=== PATIENT | male | born 1965 | race Caucasian/White ===

== ENCOUNTER 2016-11-23 14:54 | Inpatient (IN) | payer OTHER ==
[~2016-11-23] VITALS: Ht 165.1 cm; Wt 69.9 kg
[2016-11-23] MEDS ORDERED: ONDANSETRON HCL 4MG/2ML VIAL IV STA (15:18)
[2016-11-23] MEDS ORDERED: SODIUM CHLORIDE 0.9% 1,000 ML IV ONE (15:18)
[2016-11-23] MEDS ORDERED: FAMOTIDINE 20MG/2ML VIAL IV STA (15:18)
[2016-11-23] MEDS ORDERED: LORAZEPAM 2MG/ML CPJ IV ONE (15:30)
[2016-11-23 15:37] LABS: HEMATOCRIT. 47.7 % (42.0-52.0); HEMOGLOBIN. 15.9 g/dL (14.0-18.0); LYMPHOCYTES % 30.7 % (20.0-50.0); MEAN CORPUSCULAR HEMOGLOBIN 29.5 pg (28.0-32.0); MEAN CORPUSCULAR HGB CONC 33.4 g/dL (31.0-37.0); MEAN CORPUSCULAR VOLUME 88.5 fL (80.0-94.0); MEAN PLATELET VOLUME 8.5 fl (7.4-10.4); MONOCYTES % 5.4 % (2.0-8.0); NEUTROPHILS % 61.9 % (40.0-76.0); PLATELET 384 x1000/uL (130-400); RED BLOOD CELL COUNT 5.39 mill/uL (4.7-6.1); RED CELL DISTRIBUTION WIDTH 14.4 % (11.6-14.6); WHITE BLOOD COUNT 9.2 x1000/uL (4.5-11.0)
[2016-11-23 15:41] LABS: PROTHROMBIN TIME 10.5 sec
[2016-11-23 15:47] LABS: ALANINE AMINOTRANSFERASE 50 IU/L (13-61); ANION GAP 16; CALCIUM 8.5 mg/dL (8.5-10.1); CARBON DIOXIDE 27 mEq/L (21-32); CHLORIDE 106 mEq/L (98-107); CREATINE KINASE 252 IU/L (39-308); INDEX HEMOLYSI 1 (1-3); INDEX ICTERIC 1 (1-4); INDEX LIPEMIC 1 (1-3); LIPASE 217 IU/L (73-393); MAGNESIUM 2.3 mg/dL (1.8-2.4); UREA NITROGEN BLOOD 11 mg/dL (7-21); eGFR > 60 mL/min (>60)
[2016-11-23 15:49] LABS: CREATINE KINASE MB FRACTION 1.5 ng/mL (0.5-3.6); TROPONIN I < 0.02 ng/mL (0.00-0.04)
[2016-11-23 15:51] LABS: ETHANOL BLOOD 333 mg/dL
[2016-11-23 16:09] LABS: CLARITY URINE CLEAR (CLEAR); COLOR URINE YELLOW (YELLOW); GLUCOSE URINE NEGATIVE (NEGATIVE); KETONES URINE NEGATIVE (NEGATIVE); LEUKOCYTE ESTERASE URINE NEGATIVE (NEGATIVE); NITRITE URINE NEGATIVE (NEGATIVE); OCCULT BLOOD URINE NEGATIVE (NEGATIVE); PH URINE 5.5 (4.5-8.0); PROTEIN URINE NEGATIVE (NEGATIVE); SPECIFIC GRAVITY URINE 1.009 (1.005-1.030); UROBILINOGEN URINE 0.2 E.U./dL (0.2-1.0)
[2016-11-23 16:20] LABS: *AMPHETAMINES SCREEN URINE NEGATIVE (NEGATIVE); *BARBITURATES SCREEN URINE NEGATIVE (NEGATIVE); *BENZODIAZEPINES SCREEN URINE NEGATIVE (NEGATIVE); *COCAINE SCREEN URINE NEGATIVE (NEGATIVE); CANNABINOID URINE SCREEN NEGATIVE (NEGATIVE); ECSTASY MDMA SCREEN URINE CONF.TEST INDICATED (NEGATIVE); METHADONE URINE SCREEN NEGATIVE (NEGATIVE); OPIATES URINE SCREEN PRESUMTIVE POSITIVE (NEGATIVE); PHENCYCLIDINE URINE SCREEN NEGATIVE (NEGATIVE)
[2016-11-23] MEDS ORDERED: LEVETIRACETAM 500MG TABLET PO ONE (18:30)
[2016-11-23] MEDS ORDERED: LEVETIRACETAM 500MG PREMIX 100 ML IV ONE (18:30)
[2016-11-23] MEDS ORDERED: DEXT 5%/0.45% NACL 1000ML 1,000 ML IV SCH (20:07)
[2016-11-23] MEDS ORDERED: ONDANSETRON HCL 4MG/2ML VIAL IV PRN (20:15)
[2016-11-23 21:07] LABS: AMMONIA < 10 uMol/L (<32); INDEX HEMOLYSI 1 (1-3)
[2016-11-23] MEDS ORDERED: MVI, ADULT NO.1 10 ML, FOLIC ACID 1 MG, THIAMINE HCL 100 MG in SODIUM CHLORIDE 0.9% 1,0... IV NR ×4 (22:00)
[2016-11-23] MEDS: LORAZEPAM 2MG/ML CPJ IV PRN (23:45)
[2016-11-24] VITALS (7 sets, daily range): BP systolic 110–147; BP diastolic 66–85
[2016-11-24] MEDS: DEXT 5%/0.45% NACL 1000ML 1,000 ML IV SCH ×2 (06:22→16:32)
[2016-11-24 07:03] LABS: ALANINE AMINOTRANSFERASE 37 IU/L (13-61); ALBUMIN 3.3 g/dL (3.4-5.0); ANION GAP 14; BILIRUBIN DIRECT < 0.1 mg/dL (0.0-0.2); CALCIUM 7.5 mg/dL (8.5-10.1); CARBON DIOXIDE 26 mEq/L (21-32); CHLORIDE 106 mEq/L (98-107); INDEX HEMOLYSI 1 (1-3); INDEX ICTERIC 1 (1-4); INDEX LIPEMIC 1 (1-3); MAGNESIUM 1.8 mg/dL (1.8-2.4); PHOSPHORUS 3.2 mg/dL (2.5-4.9); UREA NITROGEN BLOOD 16 mg/dL (7-21); eGFR > 60 mL/min (>60)
[2016-11-24 07:33] LABS: BASOPHILS % 0.8 % (0.0-2.0); EOSINOPHILS % 1.5 % (0.0-5.0); HEMATOCRIT. 41.4 % (42.0-52.0); LYMPHOCYTES % 21.8 % (20.0-50.0); MEAN CORPUSCULAR HEMOGLOBIN 30.1 pg (28.0-32.0); MEAN CORPUSCULAR HGB CONC 33.8 g/dL (31.0-37.0); MEAN CORPUSCULAR VOLUME 89.1 fL (80.0-94.0); MEAN PLATELET VOLUME 8.7 fl (7.4-10.4); MONOCYTES % 5.9 % (2.0-8.0); PLATELET 345 x1000/uL (130-400); RED BLOOD CELL COUNT 4.65 mill/uL (4.7-6.1); RED CELL DISTRIBUTION WIDTH 14.5 % (11.6-14.6); WHITE BLOOD COUNT 11.6 x1000/uL (4.5-11.0)
[2016-11-24] MEDS: PANTOPRAZOLE SODIUM 40 MG/VIAL IV SCH (09:17)
[2016-11-24] MEDS: LEVETIRACETAM 500MG TABLET PO SCH ×2 (09:24→20:51)
[2016-11-24] MEDS: LORAZEPAM 2MG/ML CPJ IV PRN ×3 (09:24→23:10)
[2016-11-24] MEDS ORDERED: LORAZEPAM 2MG/ML CPJ IV SCH (12:00)
[2016-11-24] MEDS ORDERED: METHYLPREDNISOLONE SOD SUCC 40 MG/ML VIAL IV SCH (12:15)
[2016-11-24] MEDS ORDERED: IPRATROPIUM/ALBUTEROL 0.5-3(2.5)MG/3ML NEB HHN PRN (12:15)
[2016-11-24] MEDS ORDERED: ACETAMINOPHEN 325MG TABLET PO PRN (12:45)
[2016-11-24] MEDS: AZITHROMYCIN 500 MG TABLET PO SCH (12:53)
[2016-11-24] MEDS ORDERED: BUPR300T28 PO (17:34)
[2016-11-24] MEDS ORDERED: TRAZ-132 PO (17:35)
[2016-11-24] MEDS ORDERED: TRAMADOL 50MG TABLET PO PRN (20:15)
[2016-11-24] MEDS ORDERED: ZOLPIDEM TARTRATE 5MG TABLET PO PRN (20:15)
[2016-11-24] MEDS: IPRATROPIUM/ALBUTEROL 0.5-3(2.5)MG/3ML NEB HHN SCH (20:53)
[2016-11-25] VITALS: BP 112/81
[2016-11-25] MEDS: IPRATROPIUM/ALBUTEROL 0.5-3(2.5)MG/3ML NEB HHN SCH (02:08)
[2016-11-25 04:00] VITALS: BP 105/78
[2016-11-25] MEDS: DEXT 5%/0.45% NACL 1000ML 1,000 ML IV SCH (05:29)
[2016-11-25 06:56] LABS: BASOPHILS % 0.3 % (0.0-2.0); EOSINOPHILS % 0.1 % (0.0-5.0); HEMATOCRIT. 40.8 % (42.0-52.0); HEMOGLOBIN. 13.7 g/dL (14.0-18.0); LYMPHOCYTES % 14.2 % (20.0-50.0); MEAN CORPUSCULAR HEMOGLOBIN 29.3 pg (28.0-32.0); MEAN CORPUSCULAR HGB CONC 33.6 g/dL (31.0-37.0); MEAN CORPUSCULAR VOLUME 87.2 fL (80.0-94.0); MONOCYTES % 7.2 % (2.0-8.0); NEUTROPHILS % 78.2 % (40.0-76.0); PLATELET 339 x1000/uL (130-400); RED BLOOD CELL COUNT 4.68 mill/uL (4.7-6.1); RED CELL DISTRIBUTION WIDTH 14.2 % (11.6-14.6); WHITE BLOOD COUNT 12.9 x1000/uL (4.5-11.0)
[2016-11-25 07:27] LABS: ALANINE AMINOTRANSFERASE 35 IU/L (13-61); ALBUMIN 3.5 g/dL (3.4-5.0); ANION GAP 14; BILIRUBIN DIRECT < 0.1 mg/dL (0.0-0.2); CALCIUM 8.6 mg/dL (8.5-10.1); CARBON DIOXIDE 24 mEq/L (21-32); CHLORIDE 103 mEq/L (98-107); INDEX HEMOLYSI 1 (1-3); INDEX ICTERIC 1 (1-4); INDEX LIPEMIC 1 (1-3); MAGNESIUM 2.2 mg/dL (1.8-2.4); PHOSPHORUS 2.3 mg/dL (2.5-4.9); UREA NITROGEN BLOOD 18 mg/dL (7-21); eGFR > 60 mL/min (>60)
[2016-11-25 08:00] VITALS: BP 125/89
[2016-11-25] MEDS: LEVETIRACETAM 500MG TABLET PO SCH (08:07)
[2016-11-25] MEDS: AZITHROMYCIN 500 MG TABLET PO SCH (08:07)
[2016-11-25] MEDS: LORAZEPAM 2MG/ML CPJ IV PRN (08:08)
[2016-11-25] MEDS: PANTOPRAZOLE SODIUM 40 MG/VIAL IV SCH (08:08)
[2016-11-25] MEDS ORDERED: AZITHROMYCIN 500 MG TABLET PO SCH (09:00)
== END 2016-11-25 09:35 | disposition left against medical advice (07) | DRG 894 ==
LOC: ER 15:05 → 8WST 18:19 → UNDOADMIN 18:19 → SUPCPDRO 19:22
PROVIDERS: ADMIT Family Medicine Adult Medicine; ATTEND Family Medicine Adult Medicine
DX: F10.129 Alcohol abuse with intoxication, unspecified (principal); K56.60 Unspecified intestinal obstruction; J45.901 Unspecified asthma with (acute) exacerbation; G40.909 Epilepsy, unspecified, not intractable, without status epilepticus; T51.91XA Toxic effect of unspecified alcohol, accidental (unintentional), initial encounter; J20.9 Acute bronchitis, unspecified; Y90.8 Blood alcohol level of 240 mg/100 ml or more; Y92.89 Other specified places as the place of occurrence of the external cause
CPT/HCPCS: 36415; 70450; 70551; 74000; 74022; 80048; 80053; 80076; 80305; 81003; 82140; 82550; 82553; 83690; 83735; 84100; 84484; 85025; 85610; 85730; 93005; 96374; 96375; 99291; C9113; G0482; J1953; J2060; J2405; J2920; J3411; J3490; J7030; J7620